=== PATIENT | male | born 1975 | race Caucasian/White ===

== ENCOUNTER 2019-04-26 16:53 | Inpatient (IN) | payer BC ==
--- NOTE | 2019-04-26 17:17 | ED ---
Shortness of Breath - HPI Summary HPI Summary: The patient is a 43 y/o male arriving by ambulance to [facility] with a chief complaint of shortness of breath and myalgia since yesterday. He reports that he has been experiencing cold symptoms of sinus congestion, cough, and body aches for the last two weeks. While the congestion subsided, he is still experiencing a cough, and he has also developed a burning sensation in the chest and shortness of breath. He denies any edema. He notes that he is currently at [facility] for rehab services surrounding heroin and cocaine use, and he takes Baclofen and Subutex. While at [facility], he had O2 sat of 87%. He notes a history of asthma but his symptoms now dont feel like an asthma attack although last night they did seem similar. PMHx: . FHx: . Former smoker, no EtOH , previous use. Medications reviewed. Allergies noted. - History of Current Complaint Time Seen by Provider: 04/26/19 16:57 Hx Obtained From: Patient Onset/Duration: Lasting Days, Still Present Current Severity: Moderate Aggravating Factors: Nothing Alleviating Factors: Nothing Associated Signs & Symptoms: Cough (Nonproductive), Chest Pain Unrelated to Cough - Allergy/Home Medications Allergies/Adverse Reactions: Allergies Allergy/AdvReac Type Severity Reaction Status Date / Time No Known Allergies Allergy Verified 04/26/19 17:13 Home Medications: Home Medications Acetaminophen TAB* [Tylenol TAB*] 650 mg PO Q6H PRN 04/26/19 [History Confirmed 04/26/19] Albuterol HFA INHALER* [Ventolin HFA Inhaler*] 2 puff INH Q4H PRN 04/26/19 [ History Confirmed 04/26/19] Baclofen TAB* [Lioresal TAB*] 10 mg PO BID 04/26/19 [History Confirmed 04/26/19] Budesonide/Formote 160/4.5(NF) [Symbicort 160/4.5 (NF)] 1 puff INH BID 04/26/19 [History Confirmed 04/26/19] Buprenorp/Nalox 8-2 MG FILM [Suboxone] 2.5 film SL DAILY 04/26/19 [History Confirmed 04/26/19] Buprenorphine [Sublocade] 300 mg SUBCUT Q28D 04/26/19 [History Confirmed ] Bupropion XL* [Wellbutrin XL *] 300 mg PO DAILY 04/26/19 [History Confirmed ] Calcium Carbonate CHEW TAB* [Tums*] 500 - 1,000 mg PO DAILY PRN 04/26/19 [ History Confirmed 04/26/19] Docusate CAP* [Colace Cap*] 100 mg PO BID PRN 04/26/19 [History Confirmed ] Eucalyptus/Menthol [Orozco Cough Drops] 1 corinne PO Q2HR PRN 04/26/19 [History Confirmed 04/26/19] Fluticasone NASAL SPRAY 50MCG* [Flonase NASAL SPRAY 50MCG*] 1 spray BOTH NARES BID 04/26/19 [History Confirmed 04/26/19] Magnesium Hydroxide LIQ* [Milk of Magnesia LIQ*] 30 ml PO DAILY PRN 04/26/19 [ History Confirmed 04/26/19] Magnesium Oxide TAB* [MagOx 400 TAB*] 400 mg PO DAILY 04/26/19 [History Confirmed 04/26/19] Melatonin 5 mg PO BEDTIME PRN 04/26/19 [History Confirmed 04/26/19] Multivitamins/Minerals TAB* [Theragran/minerals TAB*] 1 tab PO DAILY 04/26/19 [ History Confirmed 04/26/19] Nicotine GUM* (NF) [Nicotine GUM*] 2 mg PO Q2H PRN 04/26/19 [History Confirmed 04/26/19] Polyethylene Glycol 3350* [Miralax*] 17 gm PO DAILY PRN 04/26/19 [History Confirmed 04/26/19] Saline NASAL SPRAY 0.65%* [Sodium Chloride 0.65% Nasal [place]*] 1 spray BOTH NARES DAILY PRN 04/26/19 [History Confirmed 04/26/19] Sertraline* [Zoloft*] 25 mg PO DAILY 04/26/19 [History Confirmed 04/26/19] Sertraline* [Zoloft*] 100 mg PO DAILY 04/26/19 [History Confirmed 04/26/19] Topiramate TAB(*) [Topamax 25 MG tab] 50 mg PO BID 04/26/19 [History Confirmed 04/26/19] cloNIDine TAB* [Catapres 0.1 MG TAB*] 0.1 mg PO TID PRN 04/26/19 [History Confirmed 04/26/19] guaiFENesin ER TAB [Mucinex*] 600 - 1,200 mg PO Q12HR PRN 04/26/19 [History Confirmed 04/26/19] PMH/Surg Hx/FS Hx/Imm Hx Endocrine/Hematology History: Denies: Hx Diabetes Respiratory History: Reports: Hx Asthma, Hx Seasonal Allergies Musculoskeletal History: Reports: Hx Back Problems Sensory History: Reports: Hx Contacts or Glasses Opthamlomology History: Reports: Hx Contacts or Glasses Psychiatric History: Reports: Hx Substance Abuse - Surgical History Surgical History: None Surgery Procedure, Year, and Place: none - Family History Known Family History: Negative: Renal Disease, Respiratory Disease - Social History Alcohol Use: None Hx Substance Use: Yes Substance Use Type: Reports: Cocaine - last used dec 2018, Heroin - last used june 2018 Hx Tobacco Use: Yes Smoking Status (MU): Former Smoker Review of Systems Positive: Chest Pain - burning sensation in chest Positive: Shortness Of Breath, Cough Positive: Myalgia. Negative: Edema All Other Systems Reviewed And Are Negative: Yes Physical Exam - Summary Physical Exam Summary: Appearance: The patient is well-nourished in no acute distress and in no acute pain. Skin: The skin is warm and dry, and skin color reflects adequate perfusion. HEENT: The head is normocephalic and atraumatic. The pupils are equal and reactive. The conjunctivae are clear and without drainage. Nares are patent and without drainage. Mouth reveals moist mucous membranes, and the throat is without erythema and exudate. The external ears are intact. The ear canals are patent and without drainage. The tympanic membranes are intact. Neck: The neck is supple with full range of motion and non-tender. There are no carotid bruits. There is no neck vein distension. Respiratory: Chest is non-tender. There are crackles about two-thirds of the way up on both sides. Cardiovascular: Heart is regular rate and rhythm. There is no murmur or rub auscultated. There is no peripheral edema and pulses are symmetrical and equal. Abdomen: The abdomen is soft and non-tender. There are normal bowel sounds heard in all four quadrants and there is no organomegaly palpated. Musculoskeletal: There is no back tenderness noted. Extremities are non-tender with full range of motion. There is good capillary refill. There is no peripheral edema or calf tenderness elicited. Neurological: Patient is alert and oriented to person, place and time. The patient has symmetrical motor strength in all four extremities. Cranial nerves are grossly intact. Deep tendon reflexes are symmetrical and equal in all four extremities. Psychiatric: The patient has an appropriate affect and does not exhibit any anxiety or depression. Triage Information Reviewed: Yes Vital Signs Reviewed: Yes Procedures - Sedation Patient Received Moderate/Deep Sedation with Procedure: No Diagnostics - Laboratory Result Diagrams: 04/26/19 17:26 04/26/19 17:26 Lab Statement: Any lab studies that have been ordered have been reviewed, and results considered in the medical decision making process. - Radiology CXR Radiology Interpretation Completed By: ED Physician Summary of Radiographic Findings: Right sided pneumonia. ED physician has reviewed and interpreted this report. Pending official read. Course/Dx - Course Course Of Treatment: Mr. Garcia was found to have pneumonia. He was given IV fluids and antibiotics although he did not meet septic criteria. He did have respiratory insufficiency and I asked the hospitalist to evaluate him for admission - Diagnoses Provider Diagnoses: Pneumonia - Physician Notifications Discussed Care of Patient With: Kori Montague - Critical Care Time Critical Care Time: 30-74 min Discharge ED - Sign-Out/Discharge Documenting (check all that apply): Patient Departure - Discharge Plan Condition: Stable Disposition: ADMITTED TO [facility] Referrals: No Primary Care Phys,NOPCP [Primary Care Provider] - - Billing Disposition and Condition Condition: STABLE Disposition: Admitted to [facility] - Attestation Statements Document Initiated by Jens: Yes Documenting Scribe: Heaven Anthony Provider For Whom Jens is Documenting (Include Credential): Dr. Jarod Orantes MD Scribe Attestation: Heaven Moncada, scribed for Dr. Jarod Orantes MD on 04/26/19 at 2047. Scribe Documentation Reviewed: Yes Provider Attestation: The documentation as recorded by the Heaven gaffney accurately reflects the service I personally performed and the decisions made by me, Dr. Jarod Orantes MD Status of Scribrick Document: Viewed
[2019-04-26 17:36] LABS: Hematocrit 34 % (42-52); Hemoglobin 11.7 g/dL (14.0-18.0); Mean Corpuscular HGB Conc 34 g/dL (31-36); Mean Corpuscular Hemoglobin 30 pg (27-31); Mean Corpuscular Volume 88 fL (80-94); Mean Platelet Volume 6.3 fL (7.4-10.4); Platelet Count 279 10^3/uL (150-450); Red Blood Count 3.85 10^6 /uL (4.18-5.48); Red Cell Distribution Width 13 % (10-15); White Blood Count 22.8 10^3/uL (3.5-10.8)
[2019-04-26 17:39] LABS: INR 1.27 (0.82-1.09)
[2019-04-26 17:56] LABS: Albumin 3.7 g/dL (3.2-5.2); Albumin/Globulin Ratio 1.2 (1-3); BUN/Creatinine Ratio 14.6 (8-20); C Reactive Protein 113.05 mg/L (<8.01); Calcium 8.6 mg/dL (8.6-10.3); EGFR African American 96.3 (>60); EGFR Non-African American 79.6 (>60); Total Bilirubin 0.6 mg/dL (0.2-1.0); Total Protein 6.7 g/dL (6.4-8.9)
[2019-04-26 18:05] LABS: ABS Eosinophils 0.1 10^3/ul (0-0.6); ABS Lymphocytes 1.4 10^3/ul (1.0-4.8); ABS Monocytes 0.8 10^3/ul (0-0.8); ABS Neutrophils 20.5 10^3/ul (1.5-7.7); Eosinophil % 0.4 %; Lymphocyte % 5.9 %
[2019-04-26 18:22] LABS: Influenza A Molecular NEGATIVE (Negative); Influenza B Molecular NEGATIVE (Negative)
[2019-04-26] MEDS ORDERED: NS 0.9% 1000 ML** 1,000 ML IV ONE (18:23)
[2019-04-26] MEDS ORDERED: cefTRIAXone(*) 1 GM in NS 0.9% 50 ML* 50 ML IVPB ONE (18:25)
[2019-04-26] MEDS ORDERED: Azithromycin 500 mg/250 ml NS 500 MG/250 ML BAG IVPB ONE (18:25)
[2019-04-26] MEDS ORDERED: Melatonin 3 MG TAB PO PRN (20:35)
[2019-04-26] MEDS ORDERED: Polyethylene Glycol 3350* 17 GM PACKET PO PRN (20:35)
[2019-04-26] MEDS ORDERED: Saline NASAL SPRAY 0.65%* BTL BOTH NARES PRN (20:35)
[2019-04-26] MEDS ORDERED: cloNIDine TAB* 0.1 MG PO PRN (20:35)
[2019-04-26] MEDS ORDERED: Ondansetron INJ* 2 MG/ML VIAL IV PRN (20:38)
[2019-04-26] MEDS ORDERED: NS 0.9% 1000 ML** 1,000 ML IV SCH (20:45)
[2019-04-26] MEDS ORDERED: Albuterol/Ipratropium NEB.SOL* Albuterol 2.5 MG/Ipratropium 0.5 MG 3 ML INH PRN (20:49)
[2019-04-26] MEDS ORDERED: guaiFENesin 100 mg/5 ml LIQ unit dose cup PO PRN (20:49)
[2019-04-26] MEDS ORDERED: Vancomycin per Pharmacy* NOTE FOLLOW UP SCH (21:00)
[2019-04-26] MEDS ORDERED: Vancomycin 1500 MG IV - x ONCE IVPB ONE ×2 (22:00)
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
[2019-04-26] MEDS: Mometasone/Formoter 200/5 MDI INH SCH (23:29)
[2019-04-26] MEDS: Gabapentin CAP(*) 300 MG PO SCH (23:32)
[2019-04-26] MEDS: traZODone TAB* 50 MG TAB PO SCH (23:33)
[2019-04-26] MEDS: QUEtiapine TAB* 100 MG PO SCH (23:33)
[2019-04-26] MEDS: Baclofen TAB* 10 MG PO SCH (23:34)
[2019-04-26] MEDS: buPROPion TAB* 100 MG PO SCH (23:34)
[2019-04-26] MEDS: Topiramate TAB(*) 25 MG PO SCH (23:34)
[2019-04-26] MEDS: Enoxaparin(*) 40 MG/0.4 ML SYR SUBCUT SCH (23:38)
[2019-04-26] MEDS: Fluticasone NASAL SPRAY 50MCG* 16 gm SPRAY BTL BOTH NARES SCH (23:39)
[2019-04-27 06:40] LABS: ABS Basophils 0.1 10^3/ul (0-0.2); ABS Eosinophils 0.2 10^3/ul (0-0.6); ABS Lymphocytes 1.3 10^3/ul (1.0-4.8); ABS Monocytes 0.7 10^3/ul (0-0.8); ABS Neutrophils 15.5 10^3/ul (1.5-7.7); Eosinophil % 1.2 %; Hematocrit 32 % (42-52); Hemoglobin 10.7 g/dL (14.0-18.0); Lymphocyte % 7.4 %; Mean Corpuscular HGB Conc 34 g/dL (31-36); Mean Corpuscular Hemoglobin 30 pg (27-31); Mean Corpuscular Volume 89 fL (80-94); Mean Platelet Volume 6.5 fL (7.4-10.4); Platelet Count 247 10^3/uL (150-450); Red Blood Count 3.53 10^6 /uL (4.18-5.48); Red Cell Distribution Width 13 % (10-15); White Blood Count 17.8 10^3/uL (3.5-10.8)
[2019-04-27 07:07] LABS: BUN/Creatinine Ratio 11.8 (8-20); Calcium 8.4 mg/dL (8.6-10.3); EGFR African American 120.2 (>60); EGFR Non-African American 99.3 (>60); Potassium 4.1 mmol/L (3.5-5.0)
[2019-04-27] MEDS: Mometasone/Formoter 200/5 MDI INH SCH ×2 (07:55→20:16)
[2019-04-27] MEDS: Acetaminophen TAB* 325 MG PO PRN ×2 (08:39→21:12)
[2019-04-27] MEDS: Magnesium Oxide TAB* 400 MG PO SCH (08:40)
[2019-04-27] MEDS: Sertraline* 100 MG TAB PO SCH (08:41)
[2019-04-27] MEDS: Baclofen TAB* 10 MG PO SCH ×2 (08:41→21:13)
[2019-04-27] MEDS: Multivitamins/Minerals TAB PO SCH (08:41)
[2019-04-27] MEDS: buPROPion TAB* 100 MG PO SCH ×3 (08:41→21:14)
[2019-04-27] MEDS: QUEtiapine TAB* 100 MG PO SCH ×2 (08:41→21:12)
[2019-04-27] MEDS: Sertraline* 25 MG TAB PO SCH (08:41)
[2019-04-27] MEDS: Topiramate TAB(*) 25 MG PO SCH ×2 (08:41→21:14)
[2019-04-27] MEDS: Gabapentin CAP(*) 300 MG PO SCH ×3 (08:41→21:22)
[2019-04-27] MEDS: Vancomycin(*) 1,000 MG in NS 0.9% 250 ML* 250 ML IV SCH ×2 (08:42→16:00)
[2019-04-27] MEDS: Fluticasone NASAL SPRAY 50MCG* 16 gm SPRAY BTL BOTH NARES SCH ×2 (08:42→21:21)
[2019-04-27] MEDS ORDERED: Pneumococcal *Vac Polyvalent 0.5 ML VIAL IM ONE (09:00)
[2019-04-27] MEDS ORDERED: Influenza VAC *QUAD* 2019-20* 0.5 ML SYRINGE IM ONE (09:00)
[2019-04-27] MEDS ORDERED: Oxybutynin XL TAB* 5 MG PO SCH (09:00)
[2019-04-27] MEDS ORDERED: Famotidine IV* 10 MG/ML 2 ML (20 mg) IV SLOW PU ONE ×2 (10:19→12:00)
--- NOTE | 2019-04-27 10:25 | PN ---
Subjective Date of Service: 04/27/19 Interval History: Patient tells me he feels overall the same since coming to the hospital, but his shortness of breath is somewhat improved. He tells me he has pain on the left side of his chest. It started yesterday and was throughout his whole chest yesterday. He has been coughing frequently. He denies fever/chills, abd pain. He mentions chronic constipation since he started sublocade. Objective Active Medications: Acetaminophen (Tylenol Tab*) 650 mg PO Q6H PRN PRN Reason: PAIN-MODERATE/TEMP >/= 100.4 Last Admin: 04/27/19 08:39 Dose: 650 mg Albuterol/Ipratropium (Duoneb (Albuterol 2.5 Mg/Ipratropium 0.5 Mg)) 1 neb INH Q4H PRN PRN Reason: SOB/WHEEZING Baclofen (Lioresal Tab*) 10 mg PO BID [facility] Last Admin: 04/27/19 08:41 Dose: 10 mg Bupropion HCl (Wellbutrin Tab*) 100 mg PO TID [facility] Last Admin: 04/27/19 08:41 Dose: 100 mg Clonidine HCl (Catapres Tab*) 0.1 mg PO TID PRN PRN Reason: ANXIETY Enoxaparin Sodium (Lovenox(*)) 40 mg SUBCUT Q24H [facility] Last Admin: 04/26/19 23:38 Dose: 40 mg Fluticasone Propionate (Flonase Nasal [place] 50mcg*) 1 spray BOTH NARES BID [facility] Last Admin: 04/27/19 08:42 Dose: 1 spray Gabapentin (Neurontin Cap(*)) 300 mg PO TID [facility] Last Admin: 04/27/19 08:41 Dose: 300 mg Guaifenesin (Robitussin 100 Mg/5ml Liq) 5 ml PO Q4H PRN PRN Reason: COUGH Ceftriaxone Sodium 1 gm/ (Sodium Chloride) 50 mls @ 100 mls/hr IVPB Q24H [facility] Sodium Chloride (Ns 0.9% 1000 Ml) 1,000 mls @ 75 mls/hr IV PER RATE [facility] Last Admin: 04/26/19 23:16 Dose: 75 mls/hr Vancomycin HCl 1,000 mg/ (Sodium Chloride) 250 mls @ 166.667 mls/hr IV Q8H [facility] Last Admin: 04/27/19 08:42 Dose: 166.667 mls/hr Magnesium Oxide (Magox 400 Tab*) 400 mg PO DAILY [facility] Last Admin: 04/27/19 08:40 Dose: 400 mg Melatonin (Melatonin) 6 mg PO BEDTIME PRN PRN Reason: SLEEP Mometasone Furoate/Formoterol Fumar (Dulera 200/5 Mdi*) 2 puff INH BID [facility]; Protocol Last Admin: 04/27/19 07:55 Dose: 2 puff Multivitamins/Minerals (Theragran/Minerals Tab*) 1 tab PO DAILY [facility] Last Admin: 04/27/19 08:41 Dose: 1 tab Nicotine Polacrilex (Nicotine Gum*) 2 mg PO Q2H PRN PRN Reason: CRAVINGS Ondansetron HCl (Zofran Inj*) 4 mg IV Q4H PRN PRN Reason: NAUSEA/VOMITING Oxybutynin Chloride (Ditropan Xl Tab*) 20 mg PO DAILY [facility] Last Admin: 04/27/19 08:49 Dose: 20 mg Pharmacy Consult (Vancomycin Per Pharmacy*) 1 note FOLLOW UP .VANC PER PHARMACY [facility]; Protocol Pharmacy Profile Note (Vancomycin Trough Check) 1 note FOLLOW UP 2330 [facility] Polyethylene Glycol/Electrolytes (Miralax*) 17 gm PO DAILY PRN PRN Reason: CONSTIPATION Prazosin HCl (Minipress 1 Mg Cap) 1 mg PO BEDTIME [facility] Last Admin: 04/26/19 23:34 Dose: 1 mg Quetiapine Fumarate (Seroquel Tab*) 100 mg PO QAM [facility] Last Admin: 04/27/19 08:41 Dose: 100 mg Quetiapine Fumarate (Seroquel Tab*) 200 mg PO BEDTIME [facility] Last Admin: 04/26/19 23:33 Dose: 200 mg Sertraline HCl (Zoloft*) 25 mg PO DAILY [facility] Last Admin: 04/27/19 08:41 Dose: 25 mg Sertraline HCl (Zoloft*) 100 mg PO DAILY [facility] Last Admin: 04/27/19 08:41 Dose: 100 mg Sodium Chloride (Sodium Chloride 0.65% Nasal [place]*) 1 spray BOTH NARES DAILY PRN PRN Reason: CONGESTION Topiramate (Topamax(*)) 50 mg PO BID [facility] Last Admin: 04/27/19 08:41 Dose: 50 mg Trazodone HCl (Desyrel Tab*) 50 mg PO BEDTIME [facility] Last Admin: 04/26/19 23:33 Dose: 50 mg Vital Signs - 8 hr 04/27/19 04/27/19 04/27/19 02:50 08:02 08:41 Temperature 98.6 F Pulse Rate 95 Respiratory 14 16 22 Rate Blood Pressure 104/58 (mmHg) O2 Sat by Pulse 94 Oximetry Oxygen Devices in Use Now: Nasal Cannula Appearance: Young white male, laying upright in bed, appearing comfortable and in NAD Eyes: No Scleral Icterus, - - PERRL Ears/Nose/Mouth/Throat: Mucous Membranes Moist Neck: Trachea Midline Respiratory: Symmetrical Chest Expansion and Respiratory Effort, - - crackles in bilateral lower lobes and right middle lobe; no wheezing; not using accessory muscles with respirations Cardiovascular: NL Sounds; No Murmurs; No JVD, RRR, - - not significantly tender to palpation in anterior chest Abdominal: NL Sounds; No Tenderness; No Distention Extremities: No Edema, No Clubbing, Cyanosis Skin: No Rash or Ulcers Neurological: Alert and Oriented x 3, NL Muscle Strength and Tone Result Diagrams: 04/27/19 06:22 04/27/19 06:22 Microbiology and Other Data: Microbiology 04/26/19 20:45 Legionella Urinary Antigen - Final Urine Negative Legionella Antigen Streptococcus pneumoniae Ag Screen - Final Negative S. pneumo Antigen Assess/Plan/Problems-Billing Assessment: 43 yo male with PMHx asthma, heroin use, cocaine use, and chronic back pain presents with fatigue and shortness of breath, found to have pneumonia. - Patient Problems (1) Chest pain Current Visit: Yes Status: Acute Code(s): R07.9 - CHEST PAIN, UNSPECIFIED SNOMED Code(s): 06185722 Comment: -EKG without ischemic changes, troponin negative; low concern for ACS -likely pleuritic related to pnuemonia (2) Pneumonia Current Visit: Yes Status: Acute Code(s): J18.9 - PNEUMONIA, UNSPECIFIED ORGANISM SNOMED Code(s): 617494638 Comment: -presents with fatigue and SOB -completed azithromycin outpatient -CXR demonstrates right middle lobe PNA -continue ceftriaxone, starting doxycycline for atypical coverage -afebrile, leukocytosis is downtrending (3) Acute respiratory failure with hypoxia Current Visit: Yes Status: Acute Code(s): J96.01 - ACUTE RESPIRATORY FAILURE WITH HYPOXIA SNOMED Code(s): 25269111 Comment: -likely 2/2 pneumonia and atelectasis -on 2L oxygen today and will wean as tolerated (4) Asthma Current Visit: Yes Status: Acute Code(s): J45.909 - UNSPECIFIED ASTHMA, UNCOMPLICATED SNOMED Code(s): 476806336 Comment: -does not appear to have acute exacerbation; patient is not wheezing or in acute distress but does have hypoxia -continue steroid inhaler (5) History of heroin use Current Visit: Yes Status: Acute Code(s): Z87.898 - PERSONAL HISTORY OF OTHER SPECIFIED CONDITIONS SNOMED Code(s): 394135852 Comment: -receives sublocade outpatient -continue prn clonidine (6) Chronic back pain Current Visit: Yes Status: Acute Code(s): M54.9 - DORSALGIA, UNSPECIFIED; G89.29 - OTHER CHRONIC PAIN SNOMED Code(s): 896159641 Comment: -stable (7) Depression Current Visit: Yes Status: Acute Code(s): F32.9 - MAJOR DEPRESSIVE DISORDER , SINGLE EPISODE, UNSPECIFIED SNOMED Code(s): 13448259 Comment: -continue zoloft, trazodone, topamax (8) DVT prophylaxis Current Visit: Yes Status: Acute Code(s): Z29.9 - ENCOUNTER FOR PROPHYLACTIC MEASURES, UNSPECIFIED SNOMED Code(s): 075891188 Comment: -lovenox (9) Full code status Current Visit: Yes Status: Acute Code(s): Z78.9 - OTHER SPECIFIED HEALTH STATUS SNOMED Code(s): 304119432 Status and Disposition: anticipate d/c back to [facility] when medically stable
[2019-04-27] MEDS: Senna TAB 8.6 mg* TAB PO SCH (12:01)
[2019-04-27] MEDS: DOXYcycline IV* 100 MG in NS 0.9% 250 ML* 250 ML IVPB SCH ×2 (12:26→23:41)
[2019-04-27] MEDS: Nicotine* 2MG (FRUIT FLAVOR) GUM PO PRN ×2 (16:01→21:32)
[2019-04-27] MEDS: cefTRIAXone(*) 1 GM in NS 0.9% 50 ML* 50 ML IVPB SCH (18:15)
[2019-04-27] MEDS: traZODone TAB* 50 MG TAB PO SCH (21:13)
[2019-04-27] MEDS: Enoxaparin(*) 40 MG/0.4 ML SYR SUBCUT SCH (21:21)
[2019-04-27] MEDS ORDERED: Oxybutynin XL TAB* 5 MG PO ONE (22:00)
[2019-04-27] MEDS: Oxybutynin XL TAB* 5 MG PO SCH ×2 (22:46→22:48)
[2019-04-27] MEDS ORDERED: Vancomycin Trough Check NOTE FOLLOW UP SCH (23:30)
[2019-04-28] MEDS: Vancomycin(*) 1,000 MG in NS 0.9% 250 ML* 250 ML IV SCH ×4 (01:03→13:23)
[2019-04-28] MEDS: Nicotine* 2MG (FRUIT FLAVOR) GUM PO PRN ×3 (06:01→21:25)
[2019-04-28 06:15] LABS: ABS Eosinophils 0.3 10^3/ul (0-0.6); ABS Lymphocytes 1.2 10^3/ul (1.0-4.8); ABS Monocytes 0.6 10^3/ul (0-0.8); ABS Neutrophils 7.5 10^3/ul (1.5-7.7); Eosinophil % 3.3 %; Hematocrit 32 % (42-52); Hemoglobin 10.8 g/dL (14.0-18.0); Lymphocyte % 12.2 %; Mean Corpuscular HGB Conc 34 g/dL (31-36); Mean Corpuscular Hemoglobin 31 pg (27-31); Mean Corpuscular Volume 91 fL (80-94); Mean Platelet Volume 6.6 fL (7.4-10.4); Platelet Count 236 10^3/uL (150-450); Red Blood Count 3.48 10^6 /uL (4.18-5.48); Red Cell Distribution Width 13 % (10-15); White Blood Count 9.7 10^3/uL (3.5-10.8)
[2019-04-28] MEDS: Mometasone/Formoter 200/5 MDI INH SCH ×2 (07:36→21:14)
[2019-04-28] MEDS: Baclofen TAB* 10 MG PO SCH ×2 (07:49→21:24)
[2019-04-28] MEDS: Magnesium Oxide TAB* 400 MG PO SCH (07:50)
[2019-04-28] MEDS: Gabapentin CAP(*) 300 MG PO SCH ×3 (07:50→21:24)
[2019-04-28] MEDS: QUEtiapine TAB* 100 MG PO SCH ×2 (07:50→21:24)
[2019-04-28] MEDS: Sertraline* 100 MG TAB PO SCH (07:50)
[2019-04-28] MEDS: Topiramate TAB(*) 25 MG PO SCH ×2 (07:50→21:23)
[2019-04-28] MEDS: Senna TAB 8.6 mg* TAB PO SCH (07:50)
[2019-04-28] MEDS: buPROPion TAB* 100 MG PO SCH ×3 (07:50→21:23)
[2019-04-28] MEDS: Fluticasone NASAL SPRAY 50MCG* 16 gm SPRAY BTL BOTH NARES SCH ×2 (07:50→21:22)
[2019-04-28] MEDS: Multivitamins/Minerals TAB PO SCH (07:50)
[2019-04-28] MEDS: Sertraline* 25 MG TAB PO SCH (07:50)
[2019-04-28] MEDS: DOXYcycline IV* 100 MG in NS 0.9% 250 ML* 250 ML IVPB SCH ×2 (12:22→23:03)
[2019-04-28] MEDS ORDERED: NS 0.9% 1000 ML** 1,000 ML IV ONE (14:39)
[2019-04-28] MEDS ORDERED: Ibuprofen TAB* 800 MG PO PRN (17:17)
[2019-04-28] MEDS ORDERED: Benzonatate CAP* 100 MG PO PRN (17:17)
[2019-04-28] MEDS: cefTRIAXone(*) 1 GM in NS 0.9% 50 ML* 50 ML IVPB SCH (19:15)
--- NOTE | 2019-04-28 19:23 | PN ---
Subjective Date of Service: 04/28/19 Interval History: Patient c/o lightheadedness with ambulation. Does feel SOB with ambulation as well. This did not improve after nebulizer. Tells me he is using incentive spirometer. Denies fever/chills. Has central chest pain which is worse with cough still. Cough is productive and tells me has foul-smelling sputum. Objective Active Medications: Acetaminophen (Tylenol Tab*) 650 mg PO Q6H PRN PRN Reason: PAIN-MODERATE/TEMP >/= 100.4 Last Admin: 04/27/19 21:12 Dose: 650 mg Albuterol/Ipratropium (Duoneb (Albuterol 2.5 Mg/Ipratropium 0.5 Mg)) 1 neb INH Q4H PRN PRN Reason: SOB/WHEEZING Last Admin: 04/28/19 11:13 Dose: 1 neb Baclofen (Lioresal Tab*) 10 mg PO BID [facility] Last Admin: 04/28/19 07:49 Dose: 10 mg Benzonatate (Tessalon Cap*) 100 mg PO BID PRN PRN Reason: COUGH Bupropion HCl (Wellbutrin Tab*) 100 mg PO TID [facility] Last Admin: 04/28/19 13:24 Dose: 100 mg Clonidine HCl (Catapres Tab*) 0.1 mg PO TID PRN PRN Reason: ANXIETY Enoxaparin Sodium (Lovenox(*)) 40 mg SUBCUT Q24H [facility] Last Admin: 04/27/19 21:21 Dose: 40 mg Fluticasone Propionate (Flonase Nasal [place] 50mcg*) 1 spray BOTH NARES BID [facility] Last Admin: 04/28/19 07:50 Dose: 1 spray Gabapentin (Neurontin Cap(*)) 300 mg PO TID [facility] Last Admin: 04/28/19 13:23 Dose: 300 mg Guaifenesin (Robitussin 100 Mg/5ml Liq) 5 ml PO Q4H PRN PRN Reason: COUGH Ceftriaxone Sodium 1 gm/ (Sodium Chloride) 50 mls @ 100 mls/hr IVPB Q24H [facility] Last Admin: 04/28/19 19:15 Dose: 100 mls/hr Doxycycline Hyclate 100 mg/ (Sodium Chloride) 250 mls @ 250 mls/hr IVPB Q12H [facility] Last Admin: 04/28/19 12:22 Dose: 250 mls/hr Ibuprofen (Motrin Tab*) 800 mg PO Q8H PRN PRN Reason: PAIN - MODERATE Magnesium Oxide (Magox 400 Tab*) 400 mg PO DAILY [facility] Last Admin: 04/28/19 07:50 Dose: 400 mg Melatonin (Melatonin) 6 mg PO BEDTIME PRN PRN Reason: SLEEP Mometasone Furoate/Formoterol Fumar (Dulera 200/5 Mdi*) 2 puff INH BID [facility]; Protocol Last Admin: 04/28/19 07:36 Dose: 2 puff Multivitamins/Minerals (Theragran/Minerals Tab*) 1 tab PO DAILY [facility] Last Admin: 04/28/19 07:50 Dose: 1 tab Nicotine Polacrilex (Nicotine Gum*) 2 mg PO Q2H PRN PRN Reason: CRAVINGS Last Admin: 04/28/19 13:30 Dose: 2 mg Ondansetron HCl (Zofran Inj*) 4 mg IV Q4H PRN PRN Reason: NAUSEA/VOMITING Oxybutynin Chloride (Ditropan Xl Tab*) 20 mg PO BEDTIME [facility] Last Admin: 04/27/19 22:48 Dose: 20 mg Polyethylene Glycol/Electrolytes (Miralax*) 17 gm PO DAILY PRN PRN Reason: CONSTIPATION Prazosin HCl (Minipress 1 Mg Cap) 1 mg PO BEDTIME [facility] Last Admin: 04/27/19 21:13 Dose: 1 mg Quetiapine Fumarate (Seroquel Tab*) 100 mg PO QAM [facility] Last Admin: 04/28/19 07:50 Dose: 100 mg Quetiapine Fumarate (Seroquel Tab*) 200 mg PO BEDTIME [facility] Last Admin: 04/27/19 21:12 Dose: 200 mg Senna (Senokot 8.6 Mg Tab*) 1 tab PO DAILY [facility] Last Admin: 04/28/19 07:50 Dose: 1 tab Sertraline HCl (Zoloft*) 25 mg PO DAILY [facility] Last Admin: 04/28/19 07:50 Dose: 25 mg Sertraline HCl (Zoloft*) 100 mg PO DAILY [facility] Last Admin: 04/28/19 07:50 Dose: 100 mg Sodium Chloride (Sodium Chloride 0.65% Nasal [place]*) 1 spray BOTH NARES DAILY PRN PRN Reason: CONGESTION Topiramate (Topamax(*)) 50 mg PO BID [facility] Last Admin: 04/28/19 07:50 Dose: 50 mg Trazodone HCl (Desyrel Tab*) 50 mg PO BEDTIME [facility] Last Admin: 04/27/19 21:13 Dose: 50 mg Vital Signs - 8 hr 04/28/19 04/28/19 04/28/19 13:23 14:44 14:45 Pulse Rate 80 84 Respiratory 19 Rate Blood Pressure 122/78 120/73 (mmHg) 04/28/19 15:23 Pulse Rate Respiratory 19 Rate Blood Pressure (mmHg) Oxygen Devices in Use Now: None Appearance: Middle aged WD WN white male, laying upright in bed, appearing comfortable and in NAD Eyes: No Scleral Icterus, - - PERRL Ears/Nose/Mouth/Throat: Mucous Membranes Moist Neck: Trachea Midline Respiratory: Symmetrical Chest Expansion and Respiratory Effort, - - trace crackles to bilateral lung bases Cardiovascular: NL Sounds; No Murmurs; No JVD, RRR, - - central chest pain reproducible on exam today which is different from yesterday Abdominal: NL Sounds; No Tenderness; No Distention, - - abd soft ,nontender, nondistended Extremities: No Edema, No Clubbing, Cyanosis Skin: No Rash or Ulcers Neurological: Alert and Oriented x 3, NL Gait, NL Muscle Strength and Tone Result Diagrams: 04/28/19 06:00 04/27/19 06:22 Microbiology and Other Data: Microbiology 04/26/19 20:45 Legionella Urinary Antigen - Final Urine Negative Legionella Antigen Streptococcus pneumoniae Ag Screen - Final Negative S. pneumo Antigen Assess/Plan/Problems-Billing Assessment: 43 yo male with PMHx asthma, heroin use, cocaine use, and chronic back pain presents with fatigue and shortness of breath, found to have pneumonia. - Patient Problems (1) Pneumonia Current Visit: Yes Status: Acute Code(s): J18.9 - PNEUMONIA, UNSPECIFIED ORGANISM SNOMED Code(s): 191624480 Comment: -presents with fatigue and SOB -completed azithromycin outpatient -CXR demonstrates right middle lobe PNA -continue ceftriaxone, starting doxycycline for atypical coverage -afebrile, leukocytosis is downtrending (2) Acute respiratory failure with hypoxia Current Visit: Yes Status: Acute Code(s): J96.01 - ACUTE RESPIRATORY FAILURE WITH HYPOXIA SNOMED Code(s): 87401192 Comment: -likely 2/2 pneumonia and atelectasis -hypoxia is resolved but still SOB with ambulation (3) Chest pain Current Visit: Yes Status: Acute Code(s): R07.9 - CHEST PAIN, UNSPECIFIED SNOMED Code(s): 25718365 Comment: -EKG without ischemic changes, troponin negative; low concern for ACS -likely pleuritic related to pnuemonia plus musculoskeletal due to frequent coughing as reproducible on exam today -adding ibuprofen (4) Asthma Current Visit: Yes Status: Acute Code(s): J45.909 - UNSPECIFIED ASTHMA, UNCOMPLICATED SNOMED Code(s): 822855821 Comment: -does not appear to have acute exacerbation; patient is not wheezing or in acute distress but does have hypoxia -continue steroid inhaler and prn nebs (5) History of heroin use Current Visit: Yes Status: Acute Code(s): Z87.898 - PERSONAL HISTORY OF OTHER SPECIFIED CONDITIONS SNOMED Code(s): 207169477 Comment: -receives sublocade outpatient -continue prn clonidine (6) Chronic back pain Current Visit: Yes Status: Acute Code(s): M54.9 - DORSALGIA, UNSPECIFIED; G89.29 - OTHER CHRONIC PAIN SNOMED Code(s): 847476860 Comment: -stable (7) Depression Current Visit: Yes Status: Acute Code(s): F32.9 - MAJOR DEPRESSIVE DISORDER , SINGLE EPISODE, UNSPECIFIED SNOMED Code(s): 28419391 Comment: -continue zoloft, trazodone, topamax (8) Dizziness Current Visit: Yes Status: Acute Code(s): R42 - DIZZINESS AND GIDDINESS SNOMED Code(s): 307175009 Comment: -patient is not orthostatic -describes as lightheadedness -gave additional 1L fluids today -possibly related to fatigue of acute illness -will order zyrtec as well (9) DVT prophylaxis Current Visit: Yes Status: Acute Code(s): Z29.9 - ENCOUNTER FOR PROPHYLACTIC MEASURES, UNSPECIFIED SNOMED Code(s): 530216583 Comment: -lovenox (10) Full code status Current Visit: Yes Status: Acute Code(s): Z78.9 - OTHER SPECIFIED HEALTH STATUS SNOMED Code(s): 215385817 Status and Disposition: anticipate d/c back to [facility] when medically stable
[2019-04-28] MEDS: Oxybutynin XL TAB* 5 MG PO SCH (21:22)
[2019-04-28] MEDS: traZODone TAB* 50 MG TAB PO SCH (21:23)
[2019-04-28] MEDS: Enoxaparin(*) 40 MG/0.4 ML SYR SUBCUT SCH (21:26)
[2019-04-28 23:52] LABS: EGFR African American 132.7 (>60); EGFR Non-African American 109.7 (>60)
[2019-04-29] MEDS ORDERED: Vancomycin Trough Check NOTE FOLLOW UP ONE (05:30)
[2019-04-29] MEDS: Nicotine* 2MG (FRUIT FLAVOR) GUM PO PRN ×3 (06:25→13:36)
[2019-04-29] MEDS: Sertraline* 100 MG TAB PO SCH (08:42)
[2019-04-29] MEDS: Sertraline* 25 MG TAB PO SCH (08:42)
[2019-04-29] MEDS: Topiramate TAB(*) 25 MG PO SCH (08:42)
[2019-04-29] MEDS: Fluticasone NASAL SPRAY 50MCG* 16 gm SPRAY BTL BOTH NARES SCH (08:42)
[2019-04-29] MEDS: Magnesium Oxide TAB* 400 MG PO SCH (08:42)
[2019-04-29] MEDS: Gabapentin CAP(*) 300 MG PO SCH ×2 (08:43→13:35)
[2019-04-29] MEDS: Baclofen TAB* 10 MG PO SCH (08:43)
[2019-04-29] MEDS: QUEtiapine TAB* 100 MG PO SCH (08:43)
[2019-04-29] MEDS: buPROPion TAB* 100 MG PO SCH ×2 (08:43→13:35)
[2019-04-29] MEDS: Multivitamins/Minerals TAB PO SCH (08:43)
[2019-04-29] MEDS: Senna TAB 8.6 mg* TAB PO SCH (08:46)
[2019-04-29] MEDS: Mometasone/Formoter 200/5 MDI INH SCH (08:48)
[2019-04-29] MEDS ORDERED: Cetirizine* 10 MG TAB PO SCH (09:00)
[2019-04-29] MEDS: DOXYcycline IV* 100 MG in NS 0.9% 250 ML* 250 ML IVPB SCH (11:49)
[2019-04-29] MEDS: cefTRIAXone(*) 1 GM in NS 0.9% 50 ML* 50 ML IVPB SCH (15:07)
[2019-04-29 16:43] VITALS: BP 117/76
--- NOTE | 2019-04-29 22:03 | DS ---
CC: Dr. Farris * DISCHARGE SUMMARY: DATE OF ADMISSION: 04/27/19 DATE OF DISCHARGE: 04/29/19 PROVIDER: Gayla Byrne NP ATTENDING PHYSICIAN: Dr. Floyd.* (DICTATED BY GAYLA BYRNE NP) PRIMARY CARE PHYSICIAN: Dr. Farris. PRIMARY DIAGNOSES: Right middle and lower lobe pneumonia and acute respiratory failure with hypoxia. SECONDARY DIAGNOSES: 1. History of chronic heroin use. 2. Chronic back pain. 3. Depression. PROCEDURES: None. STUDIES: Chest x-ray showed right middle and lower lung infiltrate. PERTINENT LABORATORY DATA: RBC 3.48, hemoglobin 10.8, hematocrit 32, glucose 116, calcium 8.4. Troponin 0.00. C-reactive protein 113.05. BNP 70. Influenza A and B negative. HISTORY OF PRESENT ILLNESS/HOSPITAL COURSE: This is a 43-year-old male with a past medical history significant for polysubstance abuse and asthma who is a patient of [facility], who came to the emergency room on 04/26/19 reporting cough and chest pain for about 2 weeks as well as sinus congestion, body aches and fatigue. In the emergency room, they did a chest x-ray and lab, which findings were suggestive of right middle and lower lobe pneumonia as well as acute respiratory failure with hypoxia. Before he had come to the emergency room [facility] had checked his O2 sat. It was 87%, required 2 L of oxygen initially upon arrival. He was also reporting chest pain, though there were no ischemic changes in the EKGs. There was a low concern for ACS. Troponin was negative. It was felt that the chest pain was likely pleuritic in nature related to the pneumonia as well as musculoskeletal strain related to coughing as the pain was reproducible. In the emergency room, he received boluses of If fluid, ceftriaxone, and azithromycin; however, because the patient had already completed a course of a Z-Michael without any resolution of symptoms, the patient initially was started on Ceftriaxone and vancomycin, which was then the next day switched to ceftriaxone and doxycycline. The next day on 04/27/19, there had been a decrease in his leukocytosis, though it still remained at 17.8, still requiring 2 L of oxygen via nasal cannula and his initial complaints had not shown any improvement. However, on 04/28/19, his white blood cell count normalized. He was able to be weaned off of oxygen, allowing to room air maintaining his sats above 92%, was feeling less short of breath with exertion though intermittently had a slightly elevated temperature of 99.2. Today, he felt much better, still short of breath with exertion though no fevers. He was not tachypneic, normotensive was not tachycardic. He stated he felt much better and was ready to go back to [facility] though he did express some concern with having to go up and down multiple flights of stairs to get to his groups and asked that he get a couple of days reprieve to allow his lungs to heal a little bit better before he was required to go back to his groups. He was discharged back to [facility] with a recommendation to be excused from groups for the next 2 days. REVIEW OF SYSTEMS: A 12-point system review was performed, which was positive for shortness of breath with exertion, occasional cough with no sputum production, negative for fever, chills, lightheadedness, dizziness, chest pain, abdominal pain, nausea, vomiting or issues moving his bowel or bladder. PHYSICAL EXAMINATION: Vital Signs: Temperature 97.7 Fahrenheit, 74 pulse, 20 respirations, 94% oxygen on room air, and 117/76 blood pressure. General: This is a well-developed, obese, young man seen sitting up in bed in no acute distress, slightly pale in appearance. HEENT: Conjunctivae pink and moist. PERRLA. EOMs intact. Mucous membranes moist. Oropharynx clear. Neck is supple. Cardiac: S1, S2 present. Heart rate regular. No murmurs, gallops, or rubs appreciated. Respiratory: Noted crackles to left lower lungs base. Other lung whitney clear on room air. No accessory muscle use noted. Abdomen: Soft, nontender, nondistended with positive bowel sounds x4. Musculoskeletal: No clubbing or cyanosis of the digits, able to move all extremities. Neurologic : No focal deficits appreciated. Sensation intact to light touch. Skin: Intact with no rashes or open areas appreciated. Psych: Alert and oriented x3 , slightly anxious with thought content organized. DISCHARGE PLAN: He is to be discharged back to [facility] transported via medicaid camp. He may resume a regular diet. He has no weightlifting restrictions though I did suggest on his discharge papers that he should be able to use the elevator at the facility for the next 2 weeks as he is still easily fatigued and short of breath with exertion and to allow his lungs to heal better, though he is capable of doing small flight of stairs. He is to return to the hospital should he develop a fever of 101 degrees or higher or if he should have worsening chest pain or shortness of breath. PLAN FOR EACH CONDITION: 1. For his right middle and lower lobe pneumonia, he is to continue 3 more days of cefdinir and doxycycline. Does not require any home O2. 2. Asthma. He did not appear to have any acute exacerbation even when hospitalized with pneumonia as he was not wheezing or in any acute distress despite the hypoxia. He is to continue his albuterol inhaler as needed as well as his Symbicort inhaler. 3. Night terrors. He is to continue his prazosin and Oxybutynin. 4. History of heroin use. He is to continue receiving his Sublocade once a month with p.r.n. clonidine and gabapentin 300 mg p.o. t.i.d. and Topamax 25 mg p.o. b.i.d. and the Suboxone film. Continue Quetiapine in the morning and at bedtime. 5. Sinus congestion. At this point, it is mostly resolved though for his comfort he may continue saline sprays and fluticasone as needed. 6. Anxiety and depression. He is to continue his Wellbutrin and trazodone as well as sertraline. MEDICATIONS TO CONTINUE UPON DISCHARGE: 1. Suboxone 8/2 mg sublingual film 2.5 film sublingually daily. 2. Baclofen 10 mg p.o. b.i.d. 3. Fluticasone nasal spray 1 spray both nares b.i.d. 4. Nicotine gum 2 mg p.o. q.2 hours p.r.n. 5. Magnesium oxide 400 mg p.o. daily. 6. Calcium carbonate with juice 500 to 1000 mg p.o. daily p.r.n. 7. Clonidine 0.1 mg p.o. t.i.d. p.r.n. 8. Guaifenesin 600 to 1200 mg p.o. q.12 hours p.r.n. 9. Docusate 100 mg p.o. b.i.d. p.r.n. 10. Topiramate 50 mg p.o. b.i.d. 11. Multivitamin 1 tab p.o. daily. 12. Sertraline 125 mg p.o. daily. 13. Bupropion 100 mg p.o. t.i.d. 14. Sublocade 300 mg subcu q.28 days. 15. Polyethylene glycol 17 g p.o. daily p.r.n. 16. Magnesium hydroxide 30 mL p.o. daily p.r.n. 17. Budesonide/formoterol 150/4.5 one puff inhalation b.i.d. 18. Saline nasal spray 1 spray both nares daily p.r.n. 19. Melatonin 5 mg p.o. at bedtime p.r.n. 20. Cough drops 1 lozenge p.o. q.12 hours p.r.n. 21. Albuterol 2 puffs inhalation q.4 hours p.r.n. 22. Trazodone 50 mg p.o. at bedtime. 23. Senna 8.6 mg p.o. daily. 24. Quetiapine 200 mg p.o. at bedtime. 25. Quetiapine 100 mg p.o. q.a.m. 26. Prazosin 1 mg p.o. at bedtime. 27. Oxybutynin XL 20 mg p.o. at bedtime. 28. Ibuprofen 800 mg p.o. q.8 hours p.r.n. 29. Gabapentin 300 mg p.o. t.i.d. 30. Doxycycline 100 mg p.o. b.i.d. x3 days. 31. Cefdinir 300 mg p.o. b.i.d. x3 days. CONDITION UPON DISCHARGE: Stable. DISPOSITION: Back to [facility] inpatient rehab. TIME SPENT: Time spent on the patient is about 60 minutes with 20 of that spent face to face. GAYLA BYRNE, GARMENT LOOPER [id number]/[facility] #: [id number] MTDD
== END 2019-04-29 16:25 | disposition home or self-care (01) | DRG 139 ==
LOC: ED 16:53 → MED 20:38 → OBSVTOIN 04-27 11:00
PROVIDERS: ADMIT Nurse Practitioner Adult Health; ATTEND Internal Medicine
DX: J18.9 Pneumonia, unspecified organism (principal); J96.01 Acute respiratory failure with hypoxia; J45.909 Unspecified asthma, uncomplicated; G89.29 Other chronic pain; M54.9 Dorsalgia, unspecified; F32.9 Major depressive disorder, single episode, unspecified; F41.9 Anxiety disorder, unspecified; K59.09 Other constipation; F51.4 Sleep terrors [night terrors]; E66.9 Obesity, unspecified; R42 Dizziness and giddiness; Z87.891 Personal history of nicotine dependence; Z23 Encounter for immunization; Z68.31 Body mass index [BMI] 31.0-31.9, adult; Z79.899 Other long term (current) drug therapy
CPT/HCPCS: 36415; 71046; 80048; 80053; 80202; 82565; 83880; 84484; 84520; 85025; 85610; 86140; 87899; 90686; 90732; 93005; 94640; 96365; 96375; 99284; A9270-GY; J0456; J0696; J1650; J3370

== ENCOUNTER 2019-05-17 14:29 | Emergency (ER) | payer BC ==
--- OUTSIDE RECORDS SUMMARY | 2019-05-17 14:47 | XMS REPORT | Continuity of Care Document ---
:1975 External Reference #:[id number] Demographics Phone Unavailable Preferred Language Unknown Marital Status Unknown Taoism Affiliation Unknown Race Unknown Ethnic Group Unknown Author Name Melania Frost M.D. (transmitted by agent of provider Lisa Nelson) Address [address] [place] [address] [place] [address] Problems Description No Information Available Social History Type Date Description Comments Sex Unknown Allergies, Adverse Reactions, Alerts Description No Information Available Medications Description No Information Available Immunizations Description No Information Available Vital Signs Description No Information Available Results Description No Information Available Procedures Description No Information Available Medical Devices Description No Information Available Encounters Description No Information Available Assessments Description No Information Available Plan of Treatment No Information Available Functional Status Description No Information Available Mental Status Description No Information Available Referrals Description No Information Available
[2019-05-17 15:15] LABS: Influenza A Molecular Negative (Negative); Influenza B Molecular Negative (Negative)
[2019-05-17] MEDS ORDERED: Albuterol/Ipratropium NEB.SOL* Albuterol 2.5 MG/Ipratropium 0.5 MG 3 ML INH ONE (16:37)
--- NOTE | 2019-05-17 16:39 | ED ---
Shortness of Breath - HPI Summary HPI Summary: 43 year old M arriving via private car complains of worsening shortness of breath, myalgia, fatigue, productive cough with milky white/yellow/bright red phlegm, fever, diaphoresis, bilateral lower extremity pain x6 days. Dx pneumonia last month and was admitted for 3-4 days. He was discharged with rx antibiotics which he finished on 05/04/2019. Patient is a resident at [facility]. Hx opioid use. Hx IV drug use. He states he last used heroin 06/28/2018. [facility] staff noticed today that patient was hypoxic and referred patient to the ED. O2 sat 90 on room air per nurse. Patient placed on nasal cannula oxygen. Patient denies chills, erythema of eyes, sore throat, chest pain, abdominal pain, nausea /vomiting, dysuria, hematuria, edema, rash, dizziness. Symptoms aggravated by ambulation. Symptoms alleviated by nothing. Medications reviewed. Admits to rare ETOH. Former smoker. Patient chews tobacco. - History of Current Complaint [facility] Time Seen by Provider: 05/17/19 16:14 Hx Obtained From: Patient Onset/Duration: Lasting Days - 6, Still Present Timing: Constant Current Severity: Moderate - 7/10 Aggravating Factors: Other - ambulation Alleviating Factors: Nothing Associated Signs & Symptoms: Negative - chills, erythema of eyes, sore throat, chest pain, abdominal pain, nausea/vomiting, dysuria, hematuria, edema, rash, dizziness - Allergy/Home Medications Allergies/Adverse Reactions: Allergies Allergy/AdvReac Type Severity Reaction Status Date / Time No Known Allergies Allergy Verified 05/17/19 14:41 Home Medications: Home Medications Aspirin TAB* [Aspirin 325 MG TAB*] 325 mg PO DAILY PRN 05/17/19 [History Confirmed 05/17/19] Bismuth Subsalicylate [Peptic Relief] 524 mg PO Q1HR PRN 05/17/19 [History Confirmed 05/17/19] Eucalyptus/Menthol [[place]rozco Cough Drops] 1 corinne PO Q2HR PRN 05/17/19 [History Confirmed 05/17/19] Gabapentin [Gabapentin 250 mg/5ml] 8 ml PO TID 05/17/19 [History Confirmed 05/17] Ibuprofen TAB* [Motrin TAB* 800 MG] 800 mg PO BID PRN 05/17/19 [History Confirmed 05/17/19] Magnesium CITRATE* [Citrate of Magnesia*] 300 ml PO WEEKLY PRN 05/17/19 [ History Confirmed 05/17/19] Montelukast Sodium TAB* [Singulair TAB*] 10 mg PO DAILY 05/17/19 [History Confirmed 05/17/19] Naloxone Nasal [place]* [Narcan Nasal [place]] 2 spray BOTH NARES ONCE PRN 05/17/19 [History Confirmed 05/17/19] Nicotine GUM* (NF) [Nicotine GUM*] 2 mg PO Q2H PRN 05/17/19 [History Confirmed 05/17/19] Nicotine PATCH 7 MG/24 HR* 1 patch TRANSDERM DAILY 05/17/19 [History Confirmed 05/17/19] Oxybutynin XL TAB* [Ditropan XL TAB*] 30 mg PO BEDTIME 05/17/19 [History Confirmed 05/17/19] Saline NASAL SPRAY 0.65%* [Sodium Chloride 0.65% Nasal [place]*] 1 spray BOTH NARES Q4H PRN 05/17/19 [History Confirmed 05/17/19] cloNIDine TAB* [Catapres 0.1 MG TAB*] 0.1 mg PO TID 05/17/19 [History Confirmed 05/17/19] guaiFENesin ER TAB [Mucinex*] 600 - 1,200 mg PO BID PRN 05/17/19 [History Confirmed 05/17/19] PMH/Surg Hx/FS Hx/Imm Hx Endocrine/Hematology History: Denies: Hx Diabetes Respiratory History: Reports: Hx Asthma, Hx Seasonal Allergies Musculoskeletal History: Reports: Hx Back Problems Sensory History: Reports: Hx Contacts or Glasses Denies: Hx Hearing Aid Opthamlomology History: Reports: Hx Contacts or Glasses Psychiatric History: Reports: Hx Anxiety, Hx Depression, Hx Substance Abuse - Surgical History Surgery Procedure, Year, and Place: none Infectious Disease History: No Infectious Disease History: Denies: Hx of Known/Suspected MRSA, Traveled Outside the [place] in Last 30 Days - Family History Known Family History: Negative: Renal Disease, Respiratory Disease - Social History Alcohol Use: None Hx Substance Use: Yes Substance Use Comment - Amount & Last Used: hx heroin and cocaine use Hx Tobacco Use: Yes Smoking Status (MU): Former Smoker Review of Systems Positive: Fever, Fatigue, Skin Diaphoresis. Negative: Chills Negative: Erythema Negative: Sore Throat Negative: Chest Pain Positive: Shortness Of Breath, Cough Negative: Abdominal Pain, Vomiting, Nausea Negative: dysuria, hematuria Positive: Myalgia, Other - BLE pain. Negative: Edema Negative: Rash Neurological/Mental Status: Negative - Dizziness All Other Systems Reviewed And Are Negative: Yes Physical Exam - Summary Physical Exam Summary: Constitutional: Well-developed, Well-nourished, Alert. (-) Distressed Skin: Warm, Dry HENT: Normocephalic; Atraumatic Eyes: Conjunctiva normal Neck: Musculoskeletal ROM normal neck. (-) JVD, (-) Stridor, (-) Tracheal deviation Cardio: Rhythm regular, rate normal, Heart sounds normal; Intact distal pulses; The pedal pulses are 2+ and symmetric. Radial pulses are 2+ and symmetric. (-) Murmur Pulmonary/Chest wall: Effort normal. (-) Respiratory distress, (-) Wheezes, Crackles in both lung bases Abd: Soft, (-) tenderness, (-) Distension, (-) Guarding, (-) Rebound Musculoskeletal: (-) Edema Lymph: (-) Cervical adenopathy Neuro: Alert, Oriented x3 Psych: Mood and affect Normal Triage Information Reviewed: Yes Vital Signs On Initial Exam: Initial Vitals Temp Pulse Resp BP Pulse Ox 99.8 F 98 22 107/68 92 05/17/19 14:34 05/17/19 14:34 05/17/19 14:34 05/17/19 14:34 05/17/19 14:34 Vital Signs Reviewed: Yes Procedures - Sedation Patient Received Moderate/Deep Sedation with Procedure: No Diagnostics - Vital Signs Vital Signs Temp Pulse Resp BP Pulse Ox 05/17/19 14:34 99.8 F 98 22 107/68 92 - Laboratory Lab Results: Lab Results 05/17/19 Range/Units 14:45 Influenza A (Rapid) Negative (Negative) Influenza B (Rapid) Negative (Negative) Result Diagrams: 05/17/19 16:35 05/17/19 16:35 Lab Statement: Any lab studies that have been ordered have been reviewed, and results considered in the medical decision making process. - Radiology CXR Radiology Interpretation Completed By: Radiologist Summary of Radiographic Findings: Increased right mid to lower lung zone airspace opacification. ED physician has reviewed this report. - CT Chest/Thorax CTA CT Interpretation Completed By: Radiologist Summary of CT Findings: 1. NO EVIDENCE FOR PULMONARY EMBOLISM. 2. BILATERAL DIFFUSE INFILTRATES MOST CONSISTENT WITH PNEUMONIA. CONSIDER BACTERIAL WELL ATYPICAL PNEUMONIA CAUSES SUCH MYCOPLASMA, CHLAMYDIA VIRAL AND FUNGAL PATHOGENS. RECOMMEND FOLLOW-UP CHEST X-RAYS TO RESOLUTION. 3. MILDLY ENLARGED MEDIASTINAL AND HILAR LYMPH NODES, LIKELY REACTIVE. ED physician has reviewed this report. Re-Evaluation - Re-Evaluation First Eval Re-Evaluation Time: 19:05 Comment: patient complaining of myalgia per nurse. will order acetaminophen Course/Dx - Course Course Of Treatment: 43 y/o M with hx IV drug use and recent dx pneumonia c/o worsening shortness of breath, myalgia, fatigue, productive cough with milky white/yellow/bright red phlegm, fever, diaphoresis, bilateral lower extremity pain x6 days. Patient noted to be hypoxic on room air. He was placed on nasal cannula oxygen. Upon physical exam, patient has crackles in both lung bases. Bloodwork results with no significant abnormalities except for WBC 11.6, RBC 3.61, Hgb 10.9, Hct 32, MPV 6.7, absolute neuts 9.2, sodium 131, chloride 99, glucose 114. Urinalysis results with no significant abnormalities. CXR shows increased right mid to lower lung zone airspace opacification. CHEST/THORAX CTA shows 1. NO EVIDENCE FOR PULMONARY EMBOLISM. 2. BILATERAL DIFFUSE INFILTRATES MOST CONSISTENT WITH PNEUMONIA. CONSIDER BACTERIAL WELL ATYPICAL PNEUMONIA CAUSES SUCH MYCOPLASMA, CHLAMYDIA VIRAL AND FUNGAL PATHOGENS. RECOMMEND FOLLOW-UP CHEST X-RAYS TO RESOLUTION. 3. MILDLY ENLARGED MEDIASTINAL AND HILAR LYMPH NODES, LIKELY REACTIVE. In the ED course, the patient was given Duoneb. Patient is ambulating well in the ED and is not hypoxic. No sepsis criteria met. Considering that he could have flu concomitantly. Will broaden out range over antibiotics to cover larger range of possible infections. Patient will be discharged home with prescription for Augmentin, doxycycline, Tamiflu and follow up from provider at [facility] in 2 days. Patient was instructed to return to Emergency Department for new or worsening symptoms. Patient understands and is agreeable to this plan. - Diagnoses Provider Diagnoses: Community acquired pneumonia Discharge ED - Sign-Out/Discharge Documenting (check all that apply): Patient Departure - Discharge Plan Condition: Stable Disposition: HOME Prescriptions: Amoxicillin/Clavulanate TAB* [Augmentin TAB 875*] 875 mg PO BID #20 tab DOXYcycline CAP(*) [DOXYcycline 100MG CAP(*)] 100 mg PO BID #20 cap Oseltamivir CAP* [Tamiflu CAP*] 75 mg PO DAILY #5 cap Patient Education Materials: Community Acquired Pneumonia (ED) Referrals: Karina Velarde, [facility] [Primary Care Provider] - 2 Days Additional Instructions: Follow up with primary care provider at [facility] in 2 days. Return to the Emergency Department for changing or worsening symptoms. - Attestation Statements Document Initiated by Scribe: Yes Documenting Scribe: Tierney Bravo Provider For Whom Scribe is Documenting (Include Credential): Pawan Duarte MD Scribe Attestation: Tierney Moncada, scribed for Pawan uDarte MD on 05/17/19 at 1941. Status of Scribe Document: Ready
[2019-05-17 16:46] LABS: ABS Basophils 0.1 10^3/ul (0-0.2); ABS Eosinophils 0.3 10^3/ul (0-0.6); ABS Lymphocytes 1.4 10^3/ul (1.0-4.8); ABS Monocytes 0.8 10^3/ul (0-0.8); ABS Neutrophils 9.2 10^3/ul (1.5-7.7); Eosinophil % 2.2 %; Hematocrit 32 % (42-52); Hemoglobin 10.9 g/dL (14.0-18.0); Mean Corpuscular HGB Conc 34 g/dL (31-36); Mean Corpuscular Hemoglobin 30 pg (27-31); Mean Corpuscular Volume 89 fL (80-94); Mean Platelet Volume 6.7 fL (7.4-10.4); Nucleated Red Blood Cells % 0.1; Platelet Count 278 10^3/uL (150-450); Red Blood Count 3.61 10^6 /uL (4.18-5.48); Red Cell Distribution Width 13 % (10-15); White Blood Count 11.6 10^3/uL (3.5-10.8)
[2019-05-17 16:57] LABS: Activated Partial Thrombo Time 34.6 seconds (26.0-38.0); INR 1.04 (0.82-1.09)
[2019-05-17 17:03] LABS: Albumin 4.2 g/dL (3.2-5.2); Albumin/Globulin Ratio 1.4 (1-3); BUN/Creatinine Ratio 12.4 (8-20); Calcium 9.4 mg/dL (8.6-10.3); EGFR African American 94.2 (>60); EGFR Non-African American 77.8 (>60); Globulin 2.9 g/dL (2-4); Potassium 4.3 mmol/L (3.5-5.0); Total Bilirubin 0.3 mg/dL (0.2-1.0); Total Protein 7.1 g/dL (6.4-8.9)
[2019-05-17] MEDS ORDERED: Iohexol 350* (CONTRAST) 500 ML MDV IV ONE (17:11)
[2019-05-17 18:03] LABS: Urine Appearance Clear; Urine Bilirubin Negative (Negative); Urine Blood Negative (Negative); Urine Color Straw; Urine Glucose Negative (Negative); Urine Ketones Negative (Negative); Urine Nitrite Negative (Negative); Urine Protein Negative (Negative); Urine Specific Gravity 1.002 (1.010-1.030); Urine Urobilinogen Negative (Negative)
[2019-05-17] MEDS ORDERED: Acetaminophen TAB* 325 MG PO ONE (19:06)
[2019-05-17] MEDS ORDERED: Amoxicillin/Clavulanate TAB* 875 MG PO ONE (19:26)
[2019-05-17] MEDS ORDERED: DOXYcycline CAP(*) 100 MG PO ONE (19:26)
[2019-05-17] MEDS ORDERED: Oseltamivir CAP* 75 MG CAP PO ONE (19:27)
[2019-05-17 19:52] VITALS: BP 123/73
== END 2019-05-17 19:56 | disposition home or self-care (01) ==
LOC: ED 14:29
DX: J18.9 Pneumonia, unspecified organism (principal); R06.02 Shortness of breath; R53.83 Other fatigue; R05 Cough; Z79.899 Other long term (current) drug therapy; F41.9 Anxiety disorder, unspecified; F32.9 Major depressive disorder, single episode, unspecified; Z87.891 Personal history of nicotine dependence
CPT/HCPCS: 36415; 71045; 71275; 80053; 81003; 83605; 84484; 85025; 85610; 85730; 87040; 99284; A9270-GY; Q9967